=== PATIENT | female | born 1985 | race American Indian/Alaskan Native ===

== ENCOUNTER 2017-03-23 05:28 | Emergency (ER) | payer OTHER ==
[2017-03-23 07:23] LABS: Basophils # (Auto) 0.1 K/mm3 (0.0-0.1); Basophils % (Auto) 1.1 % (0.0-1.8); Eosinophils # (Auto) 0.3 K/mm3 (0.0-0.4); Hematocrit 34.3 % (30.3-42.9); Hemoglobin 10.6 gm/dl (10.1-14.3); Lymphocytes # (Auto) 1.7 K/mm3 (1.2-5.4); Lymphocytes % (Auto) 24.3 % (13.4-35.0); Mean Corpuscular HGB Conc 31 % (30-34); Mean Corpuscular Volume 71 fl (79-97); Monocytes # (Auto) 0.7 K/mm3 (0.0-0.8); Monocytes % (Auto) 9.5 % (0.0-7.3); Platelet Count 286 K/mm3 (140-440); Red Blood Count 4.86 M/mm3 (3.65-5.03); Red Cell Distribution Width 17.3 % (13.2-15.2)
[2017-03-23 07:28] LABS: Mean Corpuscular Hemoglobin 22 pg (28-32)
[2017-03-23] MEDS ORDERED: MOTRIN PO ONE (10:50)
[2017-03-23] MEDS ORDERED: NORCO 5/325 PO ONE (10:50)
--- NOTE | 2017-03-23 10:55 | Emergency Department Report ---
HPI - General Chief Complaint: Vaginal Bleeding Time Seen by Provider: 03/23/17 10:43 - HPI HPI: Room 4 The patient is 31-year-old female presenting with a chief complaint of vaginal bleeding. Patient states her normal menses began approximately 3 days ago and had his normal flow approximate 4 pads per day. The patient states this morning the bleeding increased substantially and she has gone through 6 pads already. The patient states she's had lower abdominal cramping associated with the bleeding. The patient currently gives her pain score of 9/10. The patient states over the past several months her cycle has been irregular. The patient states she has not seen a patient sitter for the above complaints yet Location: Genitourinary system Duration: 3 days Quality: Cramping Severity:9/10 Modifying factors: [see above] Context: [see above] Mode of transportation: [not driving] ED Past Medical Hx - Past Medical History Previous Medical History?: Yes Hx Hypertension: Yes Hx Asthma: Yes - Surgical History Past Surgical History?: Yes Additional Surgical History: tubal ligation - Family History Family history: no significant - Social History Smoking Status: Never Smoker Substance Use Type: None (denies illicit drug use) - Medications Home Medications: Home Medications Medication Instructions Recorded Confirmed Last Taken Type Ibuprofen [Motrin 800 MG tab] 800 mg PO Q8HR PRN #20 tablet 03/23/17 Unknown Rx medroxyPROGESTERone ACETATE 10 mg PO QDAY #10 tablet 03/23/17 Unknown Rx [Provera] traMADol [Ultram] 50 mg PO Q6HR PRN #14 tablet 03/23/17 Unknown Rx ED Review of Systems ROS: Stated complaint: VAGINAL BLEEDING Other details as noted in HPI Gastrointestinal: abdominal pain Genitourinary: abnormal menses Physical Exam - Physical Exam Vital Signs: Vital Signs 03/23/17 05:35 Temperature 98.1 F Pulse Rate 109 H Respiratory 18 Rate Blood Pressure 190/132 O2 Sat by Pulse 99 Oximetry Physical Exam: GENERAL: The patient is well-developed well-nourished female lying on stretcher not appearing to be in acute distress. [] HEENT: Normocephalic. Atraumatic. Extraocular motions are intact. Patient has moist mucous membranes. NECK: Supple. Trachea midline CHEST/LUNGS: Clear to auscultation. There is no respiratory distress noted. HEART/CARDIOVASCULAR: Regular. There is no tachycardia. There is no gallop rub or murmur. ABDOMEN: Abdomen is soft, with mild discomfort to palpation and a pubic region. Patient has normal bowel sounds. There is no abdominal distention. SKIN: There is no rash. There is no edema. There is no diaphoresis. NEURO: The patient is awake, alert, and oriented. The patient is cooperative. The patient has normal speech MUSCULOSKELETAL: There is no evidence of acute injury. PELVIC: Moderate amount of dark red blood clots in the vault. No lesions seen. ED Course Vital Signs 03/23/17 05:35 Temperature 98.1 F Pulse Rate 109 H Respiratory 18 Rate Blood Pressure 190/132 O2 Sat by Pulse 99 Oximetry ED Medical Decision Making - Lab Data Result diagrams: 03/23/17 06:49 Laboratory Tests 03/23/17 03/23/17 03/23/17 06:49 06:49 07:03 WBC 7.1 RBC 4.86 Hgb 10.6 Hct 34.3 MCV 71 L MCH 22 L MCHC 31 RDW 17.3 H Plt Count 286 Lymph % (Auto) 24.3 [place] % (Auto) 9.5 H Eos % (Auto) 4.0 Baso % (Auto) 1.1 Lymph # 1.7 [place] # 0.7 Eos # 0.3 Baso # 0.1 Seg Neutrophils % 61.1 Seg Neutrophils # 4.4 HCG, Qual Negative Blood Type B POSITIVE Antibody Screen Negative - Radiology Data Radiology results: report reviewed (pelvic ultrasound), image reviewed (pelvic ultrasound) ULTRASOUND PELVIC COMPLETE ULTRASOUND TRANSVAGINAL HISTORY: Menorrhagia. COMPARISON: None. TECHNIQUE: Transabdominal and transvaginal ultrasound with color doppler interrogation. FINDINGS: Uterus: The uterus is anteverted. The uterus is enlarged and heterogeneous measuring 12 x 6 x 7 cm. Multiple fibroids are suspected. A 2.1 cm intramural fibroid is noted at the uterine fundus. A 2.1 cm fibroid is noted in the posterior wall. Multiple additional smaller fibroids are suspected. The cervix is unremarkable. Endometrium: The endometrium is homogeneous and measures 13 mm. Right ovary: 3.9 x 2.5 x 2.2 cm. Left ovary: 3.2 x 2.4 x 2.7 cm. No pelvic fluid or mass is identified. Normal color doppler interrogation. IMPRESSION: Mild to moderate uterine fibroid disease. Transcribed By: TTR Dictated By: ARLENE LOPEZ JR, MD Electronically Authenticated By: ARLENE LOPEZ JR, MD Signed Date/Time: 03/23/17 113 DD/ 31 TD/TT: 03/23/171133 - Differential Diagnosis menorrhagia, metromenorrhagia, uterine fibroids, uterine CA cervical CA Critical care attestation.: If time is entered above; I have spent that time in minutes in the direct care of this critically ill patient, excluding procedure time. ED Disposition Clinical Impression: Menorrhagia, Uterine fibroid Disposition: TO HOME OR SELFCARE Is pt being admited?: No Does the pt Need Aspirin: No Condition: Stable Instructions: Menorrhagia (ED) Additional Instructions: Return to the emergency department immediately should you develop worsening symptoms, fever, inability to tolerate food or liquid or any other concerns. Prescriptions: Ibuprofen [Motrin 800 MG tab] 800 mg PO Q8HR PRN #20 tablet PRN Reason: Pain medroxyPROGESTERone ACETATE [Provera] 10 mg PO QDAY #10 tablet traMADol [Ultram] 50 mg PO Q6HR PRN #14 tablet PRN Reason: Pain Referrals: ARLENE BHARDWAJ MD [Staff Physician] - 3-5 Days (Dr. Bhardwaj is an [employer]CE[employer]ERK. Please follow up with him for further evaluation) Time of Disposition: 12:09
--- NOTE | 2017-03-23 11:39 | Ultrasound Report ---
ULTRASOUND PELVIC COMPLETE ULTRASOUND TRANSVAGINAL HISTORY: Menorrhagia. COMPARISON: None. TECHNIQUE: Transabdominal and transvaginal ultrasound with color doppler interrogation. FINDINGS: Uterus: The uterus is anteverted. The uterus is enlarged and heterogeneous measuring 12 x 6 x 7 cm. Multiple fibroids are suspected. A 2.1 cm intramural fibroid is noted at the uterine fundus. A 2.1 cm fibroid is noted in the posterior wall. Multiple additional smaller fibroids are suspected. The cervix is unremarkable. Endometrium: The endometrium is homogeneous and measures 13 mm. Right ovary: 3.9 x 2.5 x 2.2 cm. Left ovary: 3.2 x 2.4 x 2.7 cm. No pelvic fluid or mass is identified. Normal color doppler interrogation. IMPRESSION: Mild to moderate uterine fibroid disease.
[2017-03-23 12:39] LABS: Bilirubin,Urine NEG (Negative); Blood,Urine LG (Negative); Color,Urine Red (Yellow); Mucus,Urine 3+ /HPF; Nitrite,Urine NEG (Negative)
[2017-03-23 12:40] LABS: RBC,Urine > 182.0 /HPF (0.0-6.0)
[2017-03-23 12:42] VITALS: BP 137/92
== END 2017-03-23 13:15 | disposition home or self-care (01) ==
LOC: ED 05:28
DX: N92.0 Excessive and frequent menstruation with regular cycle (principal); D25.9 Leiomyoma of uterus, unspecified; I10 Essential (primary) hypertension; J45.909 Unspecified asthma, uncomplicated; Z98.51 Tubal ligation status
CPT/HCPCS: 36415; 76830; 76856; 81001; 84703; 85025; 86850; 86900; 86901; 99284